=== PATIENT | male | born 1970 | race African-American/Black ===

== ENCOUNTER 2018-04-15 13:39 | Emergency (ER) | payer OTHER ==
[~2018-04-15] VITALS: Ht 175.3 cm; Wt 72.6 kg
[2018-04-15 15:25] LABS: URINE BILIRUBIN NEGATIVE (Negative); URINE BLOOD 2+ (Negative); URINE CLARITY CLEAR; URINE COLOR YELLOW; URINE GLUCOSE-RANDOM* NEGATIVE (Negative); URINE KETONES 1+ (Negative); URINE LEUKOCYTES-REFLEX 2+ (Negative); URINE NITRITE-REFLEX POSITIVE (Negative); URINE PROTEIN (DIPSTICK) NEGATIVE (Negative); URINE SPECIFIC GRAVITY 1.025 (1.005-1.035); URINE UROBILINOGEN 0.2 E.U./dl (0.2-1.0)
[2018-04-15 15:41] VITALS: BP 120/84
[2018-04-15 15:44] LABS: CASTS None Seen /LPF (None Seen); CRYSTALS None Seen /LPF (None Seen); SQUAMOUS None Seen /LPF (0-3); URINE RBC 3-10 Few /HPF (0-2); URINE WBC-REFLEX >25 Many /HPF (0-5)
[2018-04-15] MEDS ORDERED: KEFLEX500 M1 PO (15:50)
== END 2018-04-15 16:32 | disposition home or self-care (01) ==
LOC: ER 13:39
PROVIDERS: Emergency Medicine
DX: M79.605 Pain in left leg (principal); R41.82 Altered mental status, unspecified